=== PATIENT | male | born 1990 | race Caucasian/White ===

== ENCOUNTER 2020-08-09 09:48 | Emergency (ER) | payer BC, SELFPAY ==
[2020-08-09 09:50] VITALS: BP 119/38; PULSE 99; RESP 17; TEMP 36.7; O2SAT 98; BMI 22.6
--- NOTE | 2020-08-09 10:11 | ED.VISSUMM ---
- ER Visit Summary Date of Service: 08/09/20 Chief Complaint: [Injury to nose] History of Present Illness: The patient is a 29 M [presents to the emergency department with an injury to his nose that occurred this morning. Patient states that he was going down the basement steps retrieve some presents when he is not sure what happened but thinks may have tripped on a shoe. Patient turned to the side to try to keep from falling and smacked his face on the drywall next of the steps. Patient had large amount of bleeding from the nose. He denies loss of consciousness. He denies neck pain. He denies any other injuries. Patient has no medical history.] Physical Examination: [HEENT-PERRLA, EOMI. Cranial nerves II through XII grossly intact. TMs clear. Mucous membranes moist. No adenopathy. Patient has soft tissue swelling over the bridge of the nose with some mild tenderness on exam. No significant crepitus noted. Patient does have dried blood from both sides of the nose but no septal hematomas noted. No C-spine tenderness on palpation. Cardiovascular-regular rate and rhythm without murmur or ectopy Lungs-clear to auscultation, chest wall stable without crepitus or subcu emphysema Abdomen-normoactive bowel sounds, soft, nontender, no rebound or rigidity, no peritoneal signs. Extremities-intact ?4, normal range of motion, normal pulses, atraumatic] Test Results: [None indicated] Emergency Department Course and Treatment: [I discussed with patient obtaining x-rays versus no x-rays. I suspect clinically he likely has a nondisplaced fracture of his nose but did not feel x-rays would change treatment at this time. Patient is comfortable proceeding without x-rays.] Treatment Plan: [Patient will be referred to ENT for follow-up. Patient advised use ice to the area and Tylenol for discomfort.] Disposition: [Discharged home in stable condition] Impression: [Nasal fracture-clinically Facial contusions] This note was generated with [employer] dictation software. It may contain incorrect words, spelling, and punctuation that were not noted in review of the chart prior to signing ED Disposition - Plan for ED Patient: Referrals: Care Physician,No Primary [Primary Care Provider] -
--- NOTE | 2020-08-09 10:14 | ED.DEP ---
ED Disposition - Plan for ED Patient: Instructions: ED NASAL CONTUSION vs FX No X-ray Referrals: Care Physician,No Primary [Primary Care Provider] - Danny Paz MD [STAFF PHYSICIAN] - 5-7 Days
== END 2020-08-09 10:41 | disposition home or self-care (01) ==
LOC: ED 10:41
PROVIDERS: Emergency Provider Emergency Medicine
DX: S02.2XXA Fracture of nasal bones, initial encounter for closed fracture (principal); S00.83XA Contusion of other part of head, initial encounter; W22.8XXA Striking against or struck by other objects, initial encounter; Y93.9 Activity, unspecified; Y92.008 Other place in unspecified non-institutional (private) residence as the place of occurrence of the external cause; Y99.9 Unspecified external cause status
CPT/HCPCS: 99282

== ENCOUNTER 2022-10-04 01:53 | Emergency (ER) | payer MEDICAID, SELFPAY ==
[2022-10-04 01:53] VITALS: PULSE 66; RESP 19; TEMP 36.6; O2SAT 98; BMI 24.0
[2022-10-04 01:57] VITALS: BP 107/67; PULSE 62; PULSE 63; RESP 15; RESP 16; TEMP 35.3; O2SAT 97
--- NOTE | 2022-10-04 02:04 | EDS_ITS ---
HPI History of Present Illness Chief Complaint: Dental Informant: patient Onset/Context/Timing Onset: Today Current Severity: Mild Maximum Severity: Moderate Narrative Narrative: Patient present secondary to right lower dental pain. Patient states he is had a tooth broken for some time. He recently found out he needed to be seen at the [facility] clinic because of his Medicaid coverage. He has not yet made an appointment. He woke from sleep shortly prior to arrival with swelling in the area. He states he has some pain but was more concerned with the swelling and need to be on an antibiotic. He denies fever or chills. PFSH PFSH no medical history Home Medications famotidine 20 mg tablet 20 mg PO BID ##7 12/11/15 [Rx Last Taken Unknown] penicillin V potassium 250 mg tablet 500 mg PO 4X/DAY #40 tabs 10/04/22 [Rx Last Taken Unknown] Allergy/AdvReac Type Severity Reaction Status Date / Time acetaminophen [From [place]] Allergy Itching Verified 08/09/20 09:49 hydrocodone bitartrate Allergy Itching Verified 08/09/20 09:49 [From [place]] Social History Smoking Status: Never smoker ROS ROS ED Constitutional Constitutional ED: Denies chills or fever(s) Eyes Eyes: Denies change in vision or discharge from eye(s) ENT ENT ED: Reports other Details: Right lower dental pain ; Denies discharge from eye(s), rhinorrhea or sore throat Cardiovascular Cardiovascular: Denies chest pain Respiratory/Chest Respiratory/Chest: Denies cough or dyspnea Gastrointestinal Gastrointestinal: Denies abdominal pain, nausea or vomiting Genitourinary Genitourinary ED: Denies dysuria Musculoskeletal Musculoskeletal: Denies back pain or extremity pain Integumentary Denies Abrasions or rash Neurologic Neurologic: Denies headache(s) or weakness Psychiatric Psychiatric: Denies anxiety or depression Allergic/Immunologic Allergic/Immunologic ED: Denies lip swelling or urticaria EXAM Physical Exam Const Vital Signs: 10/04/22 01:53 10/04/22 01:57 10/04/22 01:57 Temperature 97.8 F 95.5 F L Temperature Source Temporal Temporal Pulse Rate 66 62 63 Respiratory Rate 19 H 15 16 Blood Pressure 107/67 107/67 Blood Pressure Mean 80 80 Pulse Ox 98 97 97 Oxygen Delivery Method Room Air Room Air Room Air 10/04/22 02:15 Temperature 97.9 F Temperature Source Pulse Rate 70 Respiratory Rate 16 Blood Pressure 125/60 H Blood Pressure Mean Pulse Ox Oxygen Delivery Method Positive well nourished and well developed General Appearance ED: well developed HEENT Reports normocephalic, head/scalp atraumatic and TM's clear HEENT Narrative: No facial edema or erythema noted. Intraoral examination reveals the right mandibular first premolar to be broken off at the gumline. There is mild surrounding gum edema. No trismus noted. Posterior pharynx exam is normal. Tympanic Membrane ED: Yes TM's clear Eyes PERRL and EOMs intact bilaterally Neck no lymphadenopathy and supple Chest Wall inspection of chest normal and palpation of chest normal Resp normal respiratory effort and clear to auscultation bilaterally Cardio regular rate and regular rhythm GI normal to inspection, nondistended, normoactive bowel sounds Palpation: soft Extremity normal to inspection Neuro oriented x3 and no sensory deficits noted Sensorium / Orientation: alert Motor Exam: strength 5/5 throughout Psych mental status grossly normal Skin no rashes or lesions noted MDM MDM MDM Narrative Medical decision making narrative: Patient be treated with Pen-Vee K, first dose given here. He will take Tylenol or ibuprofen as needed for pain. Phone number for [facility] is provided for him. Discharge Plan Triage Chief Complaint: Dental ED Provider: Whitney Tillman Dx/Rx/DC Orders Clinical Impression: Pain, dental Instructions: ED Dental Pain Prescriptions: New penicillin V potassium 250 mg tablet 500 mg PO 4X/DAY Qty: 40 0RF No Action famotidine 20 MG tablet 20 mg PO BID Qty: 7 0RF Primary Care Provider: Care Physician,No Primary Referrals: [facility] [Non-Staff] - As soon as possible Care Physician,No Primary [Primary Care Provider] - Disposition Disposition: Home, Self Care Discharge Date/Time: 10/04/22 02:18
[2022-10-04] MEDS: Penicillin Vk 250 MG Tablet 500 MG PO (02:14)
[2022-10-04 02:15] VITALS: BP 125/60; PULSE 70; RESP 16; TEMP 36.6
== END 2022-10-04 02:18 | disposition home or self-care (01) ==
PROVIDERS: Emergency Provider Emergency Medicine; Referring Provider Emergency Medicine; Visit Provider Emergency Medicine
DX: K08.89 Other specified disorders of teeth and supporting structures (principal)
CPT/HCPCS: 99283